=== PATIENT | female | born 1980 | race African-American/Black ===

== ENCOUNTER 2016-05-12 06:06 | Inpatient (IN) | payer BC ==
--- NOTE | ~2016-05-12 | DS ---
Discharge Summary [facility] [address] [place]. [address] NAME: GAVIOTA ÁLVAREZ : 78 STATUS : DIS [facility] PAT#: [id number] AGE: 36 ADM/REG DATE : 05/12/16 MR#: [id number] REPORT SERV DATE: 05/24/16 DICTATED BY: REJI FORD DATE: 05/23/16 REPORT STATUS : Draft TRANSCRIBED BY: PORFIRIO DATE: 05/23/16 Data Collection from hospitalization DISCHARGE DIAGNOSES: 1. Inappropriate sinus tachycardia status post sinus node ablation. 2. Dysfunctional atrial and right ventricular permanent pacemaker leads status post Cook catheter extraction of right atrial and right ventricular permanent pacemaker leads in the left subclavian vein under fluoroscopy. 3. Hypertension. 4. Atrial fibrillation. 5. History of transient ischemic attack. 6. Asthma. 7. Gastroesophageal reflux disease. 8. History of Janet. 9. History of Too disease. 10.Gastroparesis. 11.Pulmonary hypertension. CONSULTATION: Dr. Yonas Street. PROCEDURES: 1. Sinus node ablation, 05/12/2016. 2. Cook catheter extraction of right atrial and right ventricular permanent pacemaker leads and the left subclavian vein under fluoroscopy, 05/14/2016. PATHOLOGY: Left unused atrial lead-see gross description. Left ventricular unused lead-see gross description. DISCHARGE MEDICATIONS: ProAir one puff via inhaler every four hours as needed; Kieran Aspirin 325 mg every morning; Bumex 2 mg with breakfast and lunch; vitamin B12 1000 mcg sublingually every morning; cyproheptadine 4 mg twice a day; Valium 5 mg three times a day as needed; Marinol 2.5 mg every six hours; Lovenox 60 mg twice a day; Breo Ellipta one puff via inhaler at bedtime; Neurontin 800 mg three times a day; Cortef 10 mg daily at 7 p.m. and 15 mg every morning as instructed, 10 mg daily at 2 p.m.; Atarax 25 mg at bedtime and every four to six hours as needed; Antivert 25 mg every four hours as needed; Mobic 15 mg as needed; Reglan 5 mg before meals and at bedtime; Zofran 4-8 mg every four to six hours as needed; Percocet 5/325 one tablet every four hours as needed and one to two tablets every eight hours as instructed; Klor-Con 20 mEq daily; DHEA 1000 mg at bedtime; Compazine 10 mg four times a day; Phenergan 12.5-25 mg every four hours as needed; vitamin B2 400 mg daily; Zocor 20 mg at bedtime; Carafate 1 g twice a day; Topamax 25 mg at bedtime; scopolamine 0.1 mg topically every 72 hours; Effexor XR 75 mg twice a day; Verelan 180 mg at bedtime. CONDITION ON DISCHARGE: Stable. DISPOSITION: The patient was discharged home on a low-sodium, low-cholesterol cardiac diet with activities as instructed. She would follow up with me on 06/20/2016. She would follow up with Dr. Yonas Street on 06/09/2016. She would follow up with her primary care provider as needed. Discharge Summary [address] [address] NAME: GAVIOTA ÁLVAREZ : 78 STATUS : DIS [facility] PAT#: [id number] AGE: 36 ADM/REG DATE : 05/12/16 MR#: [id number] REPORT SERV DATE: 05/24/16 DICTATED BY: REJI FORD DATE: 05/23/16 REPORT STATUS : Draft TRANSCRIBED BY: PORFIRIO DATE: 05/23/16 HOSPITAL COURSE: This is a 36-year-old female, who has inappropriate sinus tachycardia. She had tried multiple medications in the past. She had undergone three sinus node modifications. She had undergone AV node ablation. Her two options were to change her device to VVI or to try sinus node ablation, not modification. She preferred to undergo ablation. She was admitted to the hospital at this time for further evaluation and treatment. Upon admission, she was taken to the Electrophysiology Laboratory, where she underwent the above-mentioned procedure. She tolerated this well. There were no complications. Following this, she was seen by Dr. Yonas Street. She was in need of two permanent pacemaker leads to be removed with Cook catheter extraction. She had functioning biventricular defibrillator and pacing device in the right subclavian system. She had two old pacing leads in the left subclavian system and two old pacing leads were not compatible with MRI scanning. The sheaths had to be removed, so that the MRI scan could be performed. The patient has dysfunctional right atrial and right ventricular leads in the left subclavian vein in need of extraction. The plan was to proceed with Cook catheter extraction of these two leads. She agreed to proceed. The following day, she did complain of some left leg numbness and tingling. She did have some bilateral lower extremity pain. On 05/14/2016, she remained stable. She was taken to the operating room by Dr. Yonas Street, where she underwent the above-mentioned procedure. She tolerated this well and there were no complications. Following this, the ICD detection was turned back on. Measurements were all within normal limits. On postop day #1, she complained of uncontrolled pain. Her wound looked okay. Pain medication was adjusted. Electrolyte replacement protocol was in place. Discharge planning was performed. Her rhythm was stable. On 06/13/2016, she continued to do well. She did have some pain, which was appropriate. She was alert and cooperative. Discharge instructions were given. Due to her improved and stable condition, she was discharged home with the above-stated instructions. Information collected by: Elena Paul I submit the above information as my discharge summary. TG/MODL Reji Ford M.D. / [id number] CC: Rosalee Jordan M.D. Stephen Martin, M.D.
--- NOTE | ~2016-05-12 | OP ---
Record Of Operation [facility] [address] [place]. [address] NAME: GAVIOTA ÁLVAREZ : 78 STATUS : ADM [facility] PAT#: [id number] AGE: 36 ADM/REG DATE : 05/12/16 MR#: [id number] REPORT SERV DATE: 05/14/16 DICTATED BY: YONAS STREET DATE: 05/14/16 REPORT STATUS : Draft TRANSCRIBED BY: MODL DATE: 05/14/16 DATE OF PROCEDURE: 05/14/2016 PREOPERATIVE DIAGNOSIS: Dysfunctional atrial and right ventricular permanent pacemaker leads, left subclavian vein, in need of removal for ability to perform MRI. POSTOPERATIVE DIAGNOSIS: Dysfunctional atrial and right ventricular permanent pacemaker leads, left subclavian vein, in need of removal for ability to perform MRI. OPERATIVE PROCEDURE: Cook catheter extraction of right atrial and right ventricular permanent pacemaker leads in the left subclavian vein under fluoroscopy. OPERATIVE SURGEON: Yonas Street M.D. ANESTHESIA: General endotracheal anesthesia, AA. OPERATIVE PROCEDURE: The patient was taken to the operating room and placed in the supine position. Anesthesia was obtained. The patient was prepped and draped in the usual fashion. Fluoroscopy was then used to visualize the left-sided right atrium and right ventricular permanent pacemaker leads. The pacemaker scar was then excised completely. The pocket was entered and the pacemaker leads were encountered. These were dissected to their sites going underneath the left clavicle and dissected free of all the scar. Two Stylets were placed, one in each lead. The leads were unable to be rotated. They were fixed with scar tissues. Stylets were removed. The ends of the leads were excised and two interlocking stylets were placed one in the each lead. Cook catheter extraction under fluoroscopy was then performed in usual fashion removing both leads in their entirety. The three functional leads from the right side remained in place and functioning normally. The leads were sent to pathology. Wounds were irrigated with 3L of saline. were then closed using three- layer fashion with suture and 3-0 Stratafix subcuticular sutures. . The patient tolerated the procedure well and was taken back to recovery in stable condition. SM/MODL Yonas Street M.D. / [id number] CC: Rosalee Jordan M.D.
--- NOTE | ~2016-05-12 | CN ---
Consultation Report [facility] [address] [place]. [address] NAME: GAVIOTA ÁLVAREZ : 78 STATUS : ADM [facility] PAT#: [id number] AGE: 36 ADM/REG DATE : 05/12/16 MR#: [id number] REPORT SERV DATE: 05/14/16 DICTATED BY: YONAS STREET DATE: 05/14/16 REPORT STATUS : Draft TRANSCRIBED BY: MODL DATE: 05/14/16 DATE OF CONSULTATION: 05/13/2016 PERTINENT HISTORY: The patient is a 36-year-old female referred by Dr. Ford in need of two permanent pacemaker leads to be removed with Cook catheter extraction. The patient had functioning biventricular defibrillator and pacing device in the right subclavian system. She had two old pacing leads in the left subclavian system, the two old pacing leads were not compatible with MRI scanning. Sheath had to be removed, so that the MRI scan could be performed. PAST MEDICAL HISTORY: Significant for previous open cardiothoracic surgery. She had previous permanent pacemaker placement, left infraclavicular position in 2011. She did have new system, biventricular AICD system placed in the right subclavian vein, in January of last year. The patient also has complained of a widened scar in the left infraclavicular position. SOCIAL HISTORY: Negative for tobacco, ethanol use. FAMILY HISTORY: Positive for nonischemic cardiomyopathy. PHYSICAL EXAMINATION: VITAL SIGNS: Shows the patient to be afebrile, blood pressure 100/60, heart rate was paced at 70. GENERAL: She is in no acute distress. Alert and oriented x3. NEUROLOGIC: Intact. No bruits noted in her neck. No adenopathy in the neck. CHEST: Had breath sounds bilaterally. She had a hypertrophic scar in left infraclavicular region from previous pacemaker placement. She had AICD permanent pacemaker in the right infraclavicular position. ABDOMEN: Soft and nontender. Obese. EXTREMITIES: Warm and dry. Chest x-ray demonstrated on the right side, permanent pacemaker AICD system with a high- voltage lead in right ventricle, right atrial lead, and a coronary sinus lead. On the left side were two capped leads, right atrial and right ventricular. IMPRESSION: At this time is dysfunctional right atrial and right ventricular leads in the left subclavian vein in need of extraction. PLAN: Plan is to proceed with Cook catheter extraction of these 2 leads. POOJA/PORFIRIO Yonas Consultation Report [facility] [address] [place]. [address] NAME: GAVIOTA ÁLVAREZ : 78 STATUS : ADM [facility] PAT#: [id number] AGE: 36 ADM/REG DATE : 05/12/16 MR#: [id number] REPORT SERV DATE: 05/14/16 DICTATED BY: YONAS STREET DATE: 05/14/16 REPORT STATUS : Draft TRANSCRIBED BY: PORFIRIO DATE: 05/14/[address] / [id number] CC: Rosalee Jordan M.D.
[~2016-05-12 06:06] MED LIST: 5-HTP50 MG PO; ACIDOPHILU2 PO; ASA5GR PO; ASABAYER PO; AT25 PO; BEN25 PO; BIST PO; BREO ELLIPTA 21 EACH INH; BUM2 PO; COMP10B PO; CONSTULOSE PO; CORTEF20 MG PO; CORTEF5 PO; CYANO1000T PO; CYPROHEPTAD4 MG PO; D 5000 PO; DHE1 PO; DRAMAMINE25 MG PO; EFFEX75 PO; EFFEXXR75 PO; ENDOCET1 TA1 PO; ENDOCET1 TAB PO; EX-LAX PO; FIORICET 50-301 EACH PO; FLAG500TAB PO; FLEET ENEMA PR; FLEXERIL5 MG PO; FLONASE NAS; FLUCON1 PO; GOLYTEL1 PO; HYDROCHLOROT25 MG PO; IBUPROFEN TOP; IMITREX25 PO; IND25 PO; ISOPTINSR PO; KLOR-CON M2020 MEQ PO; L20 PO; LEVAQUIN750 MG PO; LEVSINTAB PO; LINZESS 145 M145 MCG PO; LINZESS 290 M290 MCG PO; LOVENOX60 SC; LOVENOX80 SC; MAGNESIUM CITRATE PO; MARI2.5 PO; MARI5 PO; MCZ25 PO; MINERAL OIL PO; MIRALAXPKT PO; MOBIC7.5 PO; MOMUD PO; NEUR600 PO; NEUR800 PO; NIACIN100 PO; NUCALA IM; PAPAYA ENZY1 PO; PCET PO; PERCOCET1 TA4 PO; PHILLIPS MOM311 M1 PO; PLAQ200B PO; PR25 PO; PROAIRRESP INH; PROVHFA INH; QVAR80 MCG PO; REG5 PO; SANI-SUPP1.5 GM PR; SUCR PO; SUPER B COMP PO; SYMAX-SL0.125 MG PO; SYSTANE OPH; TOPAMAX25 PO; TRANSSCOP TOP; V180SR PO; VERELAN180 MG PO; VITAMIN B-121000 MC1 SL; VITAMIN B-2100 MG PO; VITD PO; XARELTO20 MG PO; XIFAXAN550 MG PO; ZOCOR20 PO; ZOFRAN4 PO; [UNRECOGNIZED DRUG - OTHER] PO; [UNRECOGNIZED DRUG - OTHER] TOP
[2016-05-12 06:57] LABS: BASOPHILS 0.1 %; BASOPHILS ABSOLUTE 0.01 10/3/uL (0.0-0.16); EOSINOPHILS 1.5 %; EOSINOPHILS ABSOLUTE 0.11 10/3/uL (0.0-0.53); HEMATOCRIT 37.2 % (36.0-48.0); HEMOGLOBIN 12.5 g/dL (12.0-16.0); IMMATURE GRANULOCYTES 0.3 %; IMMATURE GRANULOCYTES ABSOLUTE 0.02 10/3/uL (0.0-0.11); LYMPHOCYTES 39.2 %; LYMPHOCYTES ABSOLUTE 2.89 10/3/uL (0.67-4.30); MEAN CORPUS HGB CONC 33.6 g/dL (32.0-36.0); MEAN CORPUSCULAR HEMOGLOB 29.9 pg (26.0-34.0); MEAN PLATELET VOLUME 10.4 fL (9.2-13.0); MONOCYTES 8.3 %; MONOCYTES ABSOLUTE 0.61 10/3/uL (0.21-1.20); NEUTROPHILS 50.6 %; NEUTROPHILS ABSOLUTE 3.73 10/3/uL (2.02-8.40); PLATELET COUNT 301 10/3/uL (150-400); RBC DISTRIBUTION WIDTH 15.2 % (12.0-16.0); RED CELL COUNT 4.18 10/6/uL (4.0-5.6); WHITE BLOOD CELLS 7.4 10/3/uL (4.5-10.5)
[2016-05-12 06:58] LABS: MANUAL DIFF NO %
[2016-05-12 07:12] LABS: BUN (BLOOD UREA NITROGEN) 9 MG/DL (6-23); CALCIUM, SERUM 9.1 MG/DL (8.5-10.4); CHLORIDE, SERUM 104 MMOL/L (96-112); CO2 (CARBON DIOXIDE) 22 MMOL/L (24-34); CREATININE 1.04 MG/DL (0.55-1.02); GFR AFRICAN AMERICAN 79 ML/MIN (>=60); GFR NON AFRICAN AMERICAN 69 ML/MIN (>=60); GLUCOSE, SERUM 109 MG/DL (60-99); POTASSIUM, SERUM 3.9 MMOL/L (3.5-5.3); SODIUM, SERUM 141 MMOL/L (135-148)
[2016-05-12] MEDS ORDERED: PCET PO (07:18)
[2016-05-12] MEDS ORDERED: PR12.5 PO (07:19)
[2016-05-12] MEDS ORDERED: COMP10B PO (07:20)
[2016-05-12] MEDS ORDERED: ZOFRAN4 PO (07:21)
[2016-05-12] MEDS ORDERED: CORTEF5 PO ×2 (07:23→07:40)
[2016-05-12] MEDS ORDERED: CORTEF20 MG PO (07:41)
[2016-05-12] MEDS ORDERED: NEUR800 PO (07:42)
[2016-05-12] MEDS ORDERED: TOPAMAX25 PO (07:42)
[2016-05-12] MEDS ORDERED: AT25 PO ×2 (07:43)
[2016-05-12] MEDS ORDERED: MOBIC15 MG PO (07:44)
[2016-05-12] MEDS ORDERED: PROAIRRESP INH (07:45)
[2016-05-12] MEDS ORDERED: BREO ELLIPTA 21 EACH INH (07:45)
[2016-05-12] MEDS ORDERED: MCZ25 PO (07:46)
[2016-05-12] MEDS ORDERED: SCOPOLAMINE T (07:51)
[2016-05-12] MEDS ORDERED: VITAMIN B-2100 MG PO (07:52)
[2016-05-12] MEDS ORDERED: ZOCOR20 PO (07:54)
[2016-05-12] MEDS ORDERED: DHE1 PO (07:54)
[2016-05-14 07:46] LABS: BASOPHILS 0.1 %; BASOPHILS ABSOLUTE 0.01 10/3/uL (0.0-0.16); EOSINOPHILS 1.3 %; EOSINOPHILS ABSOLUTE 0.09 10/3/uL (0.0-0.53); HEMATOCRIT 35.4 % (36.0-48.0); HEMOGLOBIN 11.7 g/dL (12.0-16.0); IMMATURE GRANULOCYTES 0.3 %; IMMATURE GRANULOCYTES ABSOLUTE 0.02 10/3/uL (0.0-0.11); LYMPHOCYTES 31.2 %; LYMPHOCYTES ABSOLUTE 2.12 10/3/uL (0.67-4.30); MEAN CORPUS HGB CONC 33.1 g/dL (32.0-36.0); MEAN CORPUSCULAR HEMOGLOB 30.9 pg (26.0-34.0); MEAN PLATELET VOLUME 10.2 fL (9.2-13.0); MONOCYTES 11.5 %; MONOCYTES ABSOLUTE 0.78 10/3/uL (0.21-1.20); NEUTROPHILS 55.6 %; NEUTROPHILS ABSOLUTE 3.77 10/3/uL (2.02-8.40); PLATELET COUNT 238 10/3/uL (150-400); RBC DISTRIBUTION WIDTH 14.7 % (12.0-16.0); RED CELL COUNT 3.79 10/6/uL (4.0-5.6); WHITE BLOOD CELLS 6.8 10/3/uL (4.5-10.5)
[2016-05-14 07:47] LABS: MANUAL DIFF NO %; MEAN CORPUSCULAR VOLUME 93.4 fL (80-100)
[2016-05-14 07:49] LABS: PARTIAL THROMBO TIME 29.7 SEC (22.5-37.2); PROTIME (NOT ORD) 13.3 SEC (12.0-14.5)
[2016-05-14 07:57] LABS: ALBUMIN 3.2 G/DL (3.5-5.0); ALKALINE PHOSPHATASE 123 U/L (45-117); BUN (BLOOD UREA NITROGEN) 8 MG/DL (6-23); CHLORIDE, SERUM 100 MMOL/L (96-112); CREATININE 0.93 MG/DL (0.55-1.02); GFR AFRICAN AMERICAN 91 ML/MIN (>=60); GFR NON AFRICAN AMERICAN 79 ML/MIN (>=60); GLUCOSE, SERUM 89 MG/DL (60-99); POTASSIUM, SERUM 3.2 MMOL/L (3.5-5.3); SGOT(AST) 27 U/L (5-40); SGPT(ALT) 34 U/L (5-65); SODIUM, SERUM 140 MMOL/L (135-148); TOTAL BILIRUBIN 0.6 MG/DL (0-1.2); TOTAL PROTEIN 7.1 G/DL (6.0-8.5)
[2016-05-14 07:58] LABS: CALCIUM, SERUM 7.8 MG/DL (8.5-10.4); CO2 (CARBON DIOXIDE) 27 MMOL/L (24-34); DIRECT BILIRUBIN < 0.1 MG/DL (0.0-0.4); INDIRECT BILIRUBIN(NOT ORDER) 0.5 MG/DL (0.1-0.9)
[2016-05-15 13:24] LABS: CALCIUM, SERUM 8.1 MG/DL (8.5-10.4); CHLORIDE, SERUM 98 MMOL/L (96-112); CO2 (CARBON DIOXIDE) 27 MMOL/L (24-34); GFR AFRICAN AMERICAN 83 ML/MIN (>=60); GFR NON AFRICAN AMERICAN 72 ML/MIN (>=60); SODIUM, SERUM 139 MMOL/L (135-148)
[2016-05-15 13:27] LABS: BUN (BLOOD UREA NITROGEN) 4 MG/DL (6-23); GLUCOSE, SERUM 108 MG/DL (60-99); POTASSIUM, SERUM 2.8 MMOL/L (3.5-5.3)
[2016-05-16 07:26] LABS: BASOPHILS 0.1 %; BASOPHILS ABSOLUTE 0.01 10/3/uL (0.0-0.16); EOSINOPHILS 1.7 %; EOSINOPHILS ABSOLUTE 0.16 10/3/uL (0.0-0.53); HEMATOCRIT 32.2 % (36.0-48.0); HEMOGLOBIN 10.4 g/dL (12.0-16.0); IMMATURE GRANULOCYTES 0.6 %; IMMATURE GRANULOCYTES ABSOLUTE 0.06 10/3/uL (0.0-0.11); LYMPHOCYTES 23.7 %; LYMPHOCYTES ABSOLUTE 2.22 10/3/uL (0.67-4.30); MEAN CORPUS HGB CONC 32.3 g/dL (32.0-36.0); MEAN CORPUSCULAR HEMOGLOB 30.8 pg (26.0-34.0); MEAN CORPUSCULAR VOLUME 95.3 fL (80-100); MEAN PLATELET VOLUME 10.1 fL (9.2-13.0); MONOCYTES 7.6 %; MONOCYTES ABSOLUTE 0.71 10/3/uL (0.21-1.20); NEUTROPHILS 66.3 %; NEUTROPHILS ABSOLUTE 6.21 10/3/uL (2.02-8.40); PLATELET COUNT 235 10/3/uL (150-400); RED CELL COUNT 3.38 10/6/uL (4.0-5.6); WHITE BLOOD CELLS 9.4 10/3/uL (4.5-10.5)
[2016-05-16 07:27] LABS: MANUAL DIFF NO %
[2016-05-16 07:38] LABS: BUN (BLOOD UREA NITROGEN) 10 MG/DL (6-23); CALCIUM, SERUM 8.6 MG/DL (8.5-10.4); CHLORIDE, SERUM 104 MMOL/L (96-112); CO2 (CARBON DIOXIDE) 23 MMOL/L (24-34); CREATININE 1.07 MG/DL (0.55-1.02); GFR AFRICAN AMERICAN 77 ML/MIN (>=60); GFR NON AFRICAN AMERICAN 66 ML/MIN (>=60); GLUCOSE, SERUM 154 MG/DL (60-99); SODIUM, SERUM 141 MMOL/L (135-148)
[2016-05-16] MEDS ORDERED: PCET PO (16:21)
[2016-05-16] MEDS ORDERED: V5 PO (16:22)
[2016-10-15] MEDS ORDERED: LOVENOX60 SC (16:20)
[2016-10-15] MEDS ORDERED: TOPAMAX25 PO (16:21)
[2016-10-15] MEDS ORDERED: BUM2 PO (16:21)
[2016-10-15] MEDS ORDERED: REG5 PO (16:21)
[2016-10-15] MEDS ORDERED: TRANSSCOP TOP (16:21)
[2016-10-15] MEDS ORDERED: CATPATCH1 TOP (16:22)
[2016-10-15] MEDS ORDERED: ZOCOR20 PO (16:22)
[2016-10-15] MEDS ORDERED: SACU1TAB PO (16:22)
[2016-10-15] MEDS ORDERED: ISOPTIN SR180 MG PO (16:23)
[2016-10-15] MEDS ORDERED: BREO ELLIPTA 21 EACH INH (16:23)
[2016-10-15] MEDS ORDERED: COREG3 PO (16:24)
[2016-10-15] MEDS ORDERED: CORTEF5 PO ×2 (16:24→16:25)
[2016-10-15] MEDS ORDERED: NEUR800 PO (16:24)
[2016-10-15] MEDS ORDERED: AT25 PO ×2 (16:25→16:30)
[2016-10-15] MEDS ORDERED: DHE1 PO (16:25)
[2016-10-15] MEDS ORDERED: SUCR PO (16:26)
[2016-10-15] MEDS ORDERED: EFFEXXR75 PO (16:26)
[2016-10-15] MEDS ORDERED: CYPROHEPTAD4 MG PO (16:26)
[2016-10-15] MEDS ORDERED: KLOR-CON M2020 MEQ PO (16:27)
[2016-10-15] MEDS ORDERED: VITAMIN B-2100 MG PO (16:28)
[2016-10-15] MEDS ORDERED: NUCALA SQ (16:29)
[2016-10-15] MEDS ORDERED: MARI2.5 PO (16:30)
[2016-10-15] MEDS ORDERED: PR25 PO (16:30)
[2016-10-15] MEDS ORDERED: COMP10B PO (16:31)
[2016-10-15] MEDS ORDERED: MOBIC7.5 PO (16:31)
[2016-10-15] MEDS ORDERED: PCET PO (16:32)
[2016-10-15] MEDS ORDERED: IMITREX25 PO (16:36)
[2016-10-15] MEDS ORDERED: MCZ25 PO (16:38)
[2016-10-15] MEDS ORDERED: PROAIRRESP INH (16:38)
[2016-10-15] MEDS ORDERED: BEN25 PO (16:39)
[2016-10-15] MEDS ORDERED: SYSTANE OPH (16:39)
[2016-10-15] MEDS ORDERED: ANASPAZ0.125 MG PO (16:39)
[2016-10-15] MEDS ORDERED: V5 PO (16:40)
[2016-11-12] MEDS ORDERED: PR12.5 PO (14:18)
[2016-11-12] MEDS ORDERED: EFFEXOR XR150 MG PO (14:21)
[2016-11-12] MEDS ORDERED: PAPAYA ENZY1 PO (14:26)
[2016-11-12] MEDS ORDERED: NEXIUM40 PO (14:27)
[2016-11-19] MEDS ORDERED: ZOFRANODT8 PO (10:55)
[2016-11-19] MEDS ORDERED: MARI2.5 PO (10:56)
[2016-11-19] MEDS ORDERED: PCET PO (10:56)
[2016-11-19] MEDS ORDERED: TOPAMAX50 MG PO (10:57)
[2016-12-07] MEDS ORDERED: NEXIUM40 PO (15:15)
[2016-12-07] MEDS ORDERED: BREO ELLIPTA 21 EACH INH (15:15)
[2016-12-07] MEDS ORDERED: AT25 PO ×2 (15:16→15:17)
[2016-12-07] MEDS ORDERED: COREG3 PO (15:16)
[2016-12-07] MEDS ORDERED: ZOCOR20 PO (15:16)
[2016-12-07] MEDS ORDERED: IMITREX50 PO (15:17)
[2016-12-07] MEDS ORDERED: MARI2.5 PO (15:18)
[2016-12-07] MEDS ORDERED: ZOFRAN8 PO (15:18)
[2016-12-07] MEDS ORDERED: TOPAMAX50 MG PO (15:19)
[2016-12-07] MEDS ORDERED: LOVENOX60 SC (15:19)
[2016-12-07] MEDS ORDERED: PCET PO (15:19)
[2016-12-07] MEDS ORDERED: BUM2 PO (15:19)
[2016-12-07] MEDS ORDERED: CYPROHEPTAD4 MG PO (15:20)
[2016-12-07] MEDS ORDERED: CATPATCH1 TOP (15:20)
[2016-12-07] MEDS ORDERED: SACU1TAB PO (15:20)
[2016-12-07] MEDS ORDERED: NEUR800 PO (15:21)
[2016-12-07] MEDS ORDERED: CORTEF5 PO ×3 (15:22)
[2016-12-07] MEDS ORDERED: REG PO (15:23)
[2016-12-07] MEDS ORDERED: TRANSSCOP TOP (15:24)
[2016-12-07] MEDS ORDERED: SUCR PO (15:25)
[2016-12-07] MEDS ORDERED: EFFEXXR75 PO ×2 (15:26)
[2016-12-07] MEDS ORDERED: COMP10B PO (15:27)
[2016-12-07] MEDS ORDERED: PR25 PO (15:28)
[2016-12-07] MEDS ORDERED: PROMETHAZINE DM SYRP PO (15:30)
[2016-12-07] MEDS ORDERED: V5 PO (15:31)
[2016-12-07] MEDS ORDERED: MOBIC7.5 PO (15:32)
[2016-12-07] MEDS ORDERED: ISOPTIN SR180 MG PO (15:35)
[2016-12-07] MEDS ORDERED: ASABAYER PO (15:36)
[2016-12-07] MEDS ORDERED: VITD PO (15:37)
[2016-12-07] MEDS ORDERED: B121000P SC (15:37)
[2016-12-07] MEDS ORDERED: EPIPEN0.3 IM (15:37)
[2016-12-12] MEDS ORDERED: FLORINEF0.1 MG PO (11:28)
[2016-12-12] MEDS ORDERED: KLOR-CON M2020 MEQ PO (11:37)
[2016-12-12] MEDS ORDERED: CORTEF20 MG PO (11:38)
[2016-12-12] MEDS ORDERED: PR12.5 PO (11:39)
[2016-12-12] MEDS ORDERED: ZOFRAN8 PO (11:39)
[2016-12-12] MEDS ORDERED: CORTEF5 PO (11:39)
[2016-12-17] MEDS ORDERED: XIFAXAN550 MG PO (18:26)
[2016-12-22] MEDS ORDERED: BUM5 PO (10:40)
[2016-12-22] MEDS ORDERED: KLOR-CON 1010 MEQ PO (10:54)
== END 2016-05-16 18:03 | disposition home or self-care (01) | DRG 274 ==
LOC: CORLMH 06:06 → SSU1 06:15 → 7NO 15:57
PROVIDERS: Internal Medicine Cardiovascular Disease; Thoracic Surgery (Cardiothoracic Vascular Surgery)
PROC: 4A023FZ Measurement of Cardiac Rhythm, Percutaneous Approach (ICD-10-PCS; principal; 2016-05-12)
PROC: 02583ZZ Destruction of Conduction Mechanism, Percutaneous Approach (ICD-10-PCS; 2016-05-12)
PROC: 4A0234Z Measurement of Cardiac Electrical Activity, Percutaneous Approach (ICD-10-PCS; 2016-05-12)
PROC: 02K83ZZ Map Conduction Mechanism, Percutaneous Approach (ICD-10-PCS; 2016-05-12)
PROC: 0HB5XZZ Excision of Chest Skin, External Approach (ICD-10-PCS; 2016-05-14)
PROC: 02PA3MZ Removal of Cardiac Lead from Heart, Percutaneous Approach (ICD-10-PCS; 2016-05-14)
DX: T82.190A Other mechanical complication of cardiac electrode, initial encounter (principal); I44.2 Atrioventricular block, complete; I27.2 Other secondary pulmonary hypertension; K31.84 Gastroparesis; I47.1 Supraventricular tachycardia; L90.5 Scar conditions and fibrosis of skin; J45.909 Unspecified asthma, uncomplicated; K21.9 Gastro-esophageal reflux disease without esophagitis; G89.18 Other acute postprocedural pain; Z86.73 Personal history of transient ischemic attack (TIA), and cerebral infarction without residual deficits
CPT/HCPCS: 36415; 71010; 71020; 80048; 80076; 82962; 83735; 85025; 85610; 85730; 86850; 86900; 86901; 86920; 88300; 93005; 93613; 93621; 93653; A9270-GY; C1730; C1732; C1769; C1773; C1781; C1893; C1894; J0330; J1170; J1720; J1885; J2250; J2370; J2405; J2710; J2765; J3010; J3370

== ENCOUNTER 2016-05-21 17:55 | Emergency (ER) | payer BC ==
[~2016-05-21 17:55] MED LIST changes: +MOBIC15 MG PO; +PR12.5 PO; +SCOPOLAMINE T; +V5 PO
[2016-05-21 18:56] LABS: BASOPHILS 0.2 %; BASOPHILS ABSOLUTE 0.02 10/3/uL (0.0-0.16); EOSINOPHILS 3.6 %; EOSINOPHILS ABSOLUTE 0.34 10/3/uL (0.0-0.53); HEMOGLOBIN 11.7 g/dL (12.0-16.0); IMMATURE GRANULOCYTES 0.4 %; IMMATURE GRANULOCYTES ABSOLUTE 0.04 10/3/uL (0.0-0.11); LYMPHOCYTES 27.1 %; LYMPHOCYTES ABSOLUTE 2.58 10/3/uL (0.67-4.30); MEAN CORPUS HGB CONC 32.8 g/dL (32.0-36.0); MEAN CORPUSCULAR HEMOGLOB 30.3 pg (26.0-34.0); MEAN CORPUSCULAR VOLUME 92.5 fL (80-100); MEAN PLATELET VOLUME 10.1 fL (9.2-13.0); MONOCYTES 8.6 %; MONOCYTES ABSOLUTE 0.82 10/3/uL (0.21-1.20); NEUTROPHILS 60.1 %; NEUTROPHILS ABSOLUTE 5.72 10/3/uL (2.02-8.40); RBC DISTRIBUTION WIDTH 15.2 % (12.0-16.0); RED CELL COUNT 3.86 10/6/uL (4.0-5.6); WHITE BLOOD CELLS 9.5 10/3/uL (4.5-10.5)
[2016-05-21 18:58] LABS: HEMATOCRIT 35.7 % (36.0-48.0); MANUAL DIFF NO %; PLATELET COUNT 351 10/3/uL (150-400)
[2016-05-21 19:04] LABS: INFLUENZA A SCREEN NEGATIVE (NEGATIVE); INFLUENZA B SCREEN NEGATIVE (NEGATIVE)
[2016-05-21 19:12] LABS: ALBUMIN 3.5 G/DL (3.5-5.0); BUN (BLOOD UREA NITROGEN) 8 MG/DL (6-23); CALCIUM, SERUM 9.2 MG/DL (8.5-10.4); CHLORIDE, SERUM 104 MMOL/L (96-112); CO2 (CARBON DIOXIDE) 23 MMOL/L (24-34); GFR AFRICAN AMERICAN 95 ML/MIN (>=60); GFR NON AFRICAN AMERICAN 82 ML/MIN (>=60); SGPT(ALT) 56 U/L (5-65); SODIUM, SERUM 138 MMOL/L (135-148)
[2016-05-21 19:13] LABS: A/G RATIO 0.8 (0.7-1.9); ALKALINE PHOSPHATASE 189 U/L (45-117); GLOBULIN 4.5 G/DL (2.5-4.1); GLUCOSE, SERUM 115 MG/DL (60-99); POTASSIUM, SERUM 4.7 MMOL/L (3.5-5.3); SGOT(AST) 43 U/L (5-40)
[2016-10-15] MEDS ORDERED: LOVENOX60 SC (16:20)
[2016-10-15] MEDS ORDERED: TRANSSCOP TOP (16:21)
[2016-10-15] MEDS ORDERED: TOPAMAX25 PO (16:21)
[2016-10-15] MEDS ORDERED: BUM2 PO (16:21)
[2016-10-15] MEDS ORDERED: REG5 PO (16:21)
[2016-10-15] MEDS ORDERED: ZOCOR20 PO (16:22)
[2016-10-15] MEDS ORDERED: SACU1TAB PO (16:22)
[2016-10-15] MEDS ORDERED: CATPATCH1 TOP (16:22)
[2016-10-15] MEDS ORDERED: BREO ELLIPTA 21 EACH INH (16:23)
[2016-10-15] MEDS ORDERED: ISOPTIN SR180 MG PO (16:23)
[2016-10-15] MEDS ORDERED: CORTEF5 PO ×2 (16:24→16:25)
[2016-10-15] MEDS ORDERED: COREG3 PO (16:24)
[2016-10-15] MEDS ORDERED: NEUR800 PO (16:24)
[2016-10-15] MEDS ORDERED: AT25 PO ×2 (16:25→16:30)
[2016-10-15] MEDS ORDERED: DHE1 PO (16:25)
[2016-10-15] MEDS ORDERED: CYPROHEPTAD4 MG PO (16:26)
[2016-10-15] MEDS ORDERED: SUCR PO (16:26)
[2016-10-15] MEDS ORDERED: EFFEXXR75 PO (16:26)
[2016-10-15] MEDS ORDERED: KLOR-CON M2020 MEQ PO (16:27)
[2016-10-15] MEDS ORDERED: VITAMIN B-2100 MG PO (16:28)
[2016-10-15] MEDS ORDERED: NUCALA SQ (16:29)
[2016-10-15] MEDS ORDERED: MARI2.5 PO (16:30)
[2016-10-15] MEDS ORDERED: PR25 PO (16:30)
[2016-10-15] MEDS ORDERED: COMP10B PO (16:31)
[2016-10-15] MEDS ORDERED: MOBIC7.5 PO (16:31)
[2016-10-15] MEDS ORDERED: PCET PO (16:32)
[2016-10-15] MEDS ORDERED: IMITREX25 PO (16:36)
[2016-10-15] MEDS ORDERED: PROAIRRESP INH (16:38)
[2016-10-15] MEDS ORDERED: MCZ25 PO (16:38)
[2016-10-15] MEDS ORDERED: BEN25 PO (16:39)
[2016-10-15] MEDS ORDERED: SYSTANE OPH (16:39)
[2016-10-15] MEDS ORDERED: ANASPAZ0.125 MG PO (16:39)
[2016-10-15] MEDS ORDERED: V5 PO (16:40)
[2016-11-12] MEDS ORDERED: PR12.5 PO (14:18)
[2016-11-12] MEDS ORDERED: EFFEXOR XR150 MG PO (14:21)
[2016-11-12] MEDS ORDERED: PAPAYA ENZY1 PO (14:26)
[2016-11-12] MEDS ORDERED: NEXIUM40 PO (14:27)
[2016-11-19] MEDS ORDERED: ZOFRANODT8 PO (10:55)
[2016-11-19] MEDS ORDERED: PCET PO (10:56)
[2016-11-19] MEDS ORDERED: MARI2.5 PO (10:56)
[2016-11-19] MEDS ORDERED: TOPAMAX50 MG PO (10:57)
[2016-12-07] MEDS ORDERED: NEXIUM40 PO (15:15)
[2016-12-07] MEDS ORDERED: BREO ELLIPTA 21 EACH INH (15:15)
[2016-12-07] MEDS ORDERED: COREG3 PO (15:16)
[2016-12-07] MEDS ORDERED: AT25 PO ×2 (15:16→15:17)
[2016-12-07] MEDS ORDERED: ZOCOR20 PO (15:16)
[2016-12-07] MEDS ORDERED: IMITREX50 PO (15:17)
[2016-12-07] MEDS ORDERED: ZOFRAN8 PO (15:18)
[2016-12-07] MEDS ORDERED: MARI2.5 PO (15:18)
[2016-12-07] MEDS ORDERED: TOPAMAX50 MG PO (15:19)
[2016-12-07] MEDS ORDERED: LOVENOX60 SC (15:19)
[2016-12-07] MEDS ORDERED: BUM2 PO (15:19)
[2016-12-07] MEDS ORDERED: PCET PO (15:19)
[2016-12-07] MEDS ORDERED: SACU1TAB PO (15:20)
[2016-12-07] MEDS ORDERED: CYPROHEPTAD4 MG PO (15:20)
[2016-12-07] MEDS ORDERED: CATPATCH1 TOP (15:20)
[2016-12-07] MEDS ORDERED: NEUR800 PO (15:21)
[2016-12-07] MEDS ORDERED: CORTEF5 PO ×3 (15:22)
[2016-12-07] MEDS ORDERED: REG PO (15:23)
[2016-12-07] MEDS ORDERED: TRANSSCOP TOP (15:24)
[2016-12-07] MEDS ORDERED: SUCR PO (15:25)
[2016-12-07] MEDS ORDERED: EFFEXXR75 PO ×2 (15:26)
[2016-12-07] MEDS ORDERED: COMP10B PO (15:27)
[2016-12-07] MEDS ORDERED: PR25 PO (15:28)
[2016-12-07] MEDS ORDERED: PROMETHAZINE DM SYRP PO (15:30)
[2016-12-07] MEDS ORDERED: V5 PO (15:31)
[2016-12-07] MEDS ORDERED: MOBIC7.5 PO (15:32)
[2016-12-07] MEDS ORDERED: ISOPTIN SR180 MG PO (15:35)
[2016-12-07] MEDS ORDERED: ASABAYER PO (15:36)
[2016-12-07] MEDS ORDERED: VITD PO (15:37)
[2016-12-07] MEDS ORDERED: B121000P SC (15:37)
[2016-12-07] MEDS ORDERED: EPIPEN0.3 IM (15:37)
[2016-12-12] MEDS ORDERED: FLORINEF0.1 MG PO (11:28)
[2016-12-12] MEDS ORDERED: KLOR-CON M2020 MEQ PO (11:37)
[2016-12-12] MEDS ORDERED: CORTEF20 MG PO (11:38)
[2016-12-12] MEDS ORDERED: CORTEF5 PO (11:39)
[2016-12-12] MEDS ORDERED: PR12.5 PO (11:39)
[2016-12-12] MEDS ORDERED: ZOFRAN8 PO (11:39)
[2016-12-17] MEDS ORDERED: XIFAXAN550 MG PO (18:26)
[2016-12-22] MEDS ORDERED: BUM5 PO (10:40)
[2016-12-22] MEDS ORDERED: KLOR-CON 1010 MEQ PO (10:54)
== END 2016-05-21 22:07 | disposition home or self-care (01) ==
LOC: ER 17:55
PROVIDERS: Emergency Medicine; Hospitalist
DX: T81.4XXA Infection following a procedure, initial encounter (principal); J45.909 Unspecified asthma, uncomplicated; I11.0 Hypertensive heart disease with heart failure; I50.9 Heart failure, unspecified; F41.9 Anxiety disorder, unspecified; F32.9 Major depressive disorder, single episode, unspecified; M32.9 Systemic lupus erythematosus, unspecified; Z91.041 Radiographic dye allergy status; Z88.0 Allergy status to penicillin; Z88.5 Allergy status to narcotic agent; Z88.8 Allergy status to other drugs, medicaments and biological substances; Z88.1 Allergy status to other antibiotic agents; Z91.040 Latex allergy status; Z91.018 Allergy to other foods; Z91.013 Allergy to seafood; Z91.048 Other nonmedicinal substance allergy status; Z79.82 Long term (current) use of aspirin
CPT/HCPCS: 36600; 80053; 84443; 85025; 87040; 87804; 93005; 96374; 99285; J1170; J2405

== ENCOUNTER 2016-06-02 14:31 | Emergency (ER) | payer BC ==
[2016-06-02 15:18] LABS: BASOPHILS 0.2 %; BASOPHILS ABSOLUTE 0.02 10/3/uL (0.0-0.16); EOSINOPHILS 3.4 %; EOSINOPHILS ABSOLUTE 0.28 10/3/uL (0.0-0.53); HEMATOCRIT 43.1 % (36.0-48.0); HEMOGLOBIN 14.8 g/dL (12.0-16.0); IMMATURE GRANULOCYTES 0.2 %; IMMATURE GRANULOCYTES ABSOLUTE 0.02 10/3/uL (0.0-0.11); LYMPHOCYTES 46.2 %; LYMPHOCYTES ABSOLUTE 3.85 10/3/uL (0.67-4.30); MANUAL DIFF NO %; MEAN CORPUS HGB CONC 34.3 g/dL (32.0-36.0); MEAN CORPUSCULAR HEMOGLOB 30.4 pg (26.0-34.0); MEAN CORPUSCULAR VOLUME 88.5 fL (80-100); MEAN PLATELET VOLUME 10.5 fL (9.2-13.0); MONOCYTES 10.4 %; MONOCYTES ABSOLUTE 0.87 10/3/uL (0.21-1.20); NEUTROPHILS 39.6 %; NEUTROPHILS ABSOLUTE 3.29 10/3/uL (2.02-8.40); PLATELET COUNT 447 10/3/uL (150-400); RBC DISTRIBUTION WIDTH 14.9 % (12.0-16.0); RED CELL COUNT 4.87 10/6/uL (4.0-5.6); WHITE BLOOD CELLS 8.3 10/3/uL (4.5-10.5)
[2016-06-02 18:19] LABS: BUN (BLOOD UREA NITROGEN) 11 MG/DL (6-23); CALCIUM, SERUM 8.6 MG/DL (8.5-10.4); CHLORIDE, SERUM 95 MMOL/L (96-112); CREATININE 1.03 MG/DL (0.55-1.02); GFR AFRICAN AMERICAN 80 ML/MIN (>=60); GFR NON AFRICAN AMERICAN 69 ML/MIN (>=60); GLOBULIN 4.1 G/DL (2.5-4.1); GLUCOSE, SERUM 113 MG/DL (60-99); SGOT(AST) 32 U/L (5-40); SGPT(ALT) 36 U/L (5-65); SODIUM, SERUM 137 MMOL/L (135-148); TOTAL BILIRUBIN 0.9 MG/DL (0-1.2); TOTAL PROTEIN 8.1 G/DL (6.0-8.5)
[2016-06-02 18:21] LABS: ALKALINE PHOSPHATASE 160 U/L (45-117); CO2 (CARBON DIOXIDE) 29 MMOL/L (24-34); POTASSIUM, SERUM 2.8 MMOL/L (3.5-5.3)
[2016-10-15] MEDS ORDERED: LOVENOX60 SC (16:20)
[2016-10-15] MEDS ORDERED: BUM2 PO (16:21)
[2016-10-15] MEDS ORDERED: TOPAMAX25 PO (16:21)
[2016-10-15] MEDS ORDERED: REG5 PO (16:21)
[2016-10-15] MEDS ORDERED: TRANSSCOP TOP (16:21)
[2016-10-15] MEDS ORDERED: CATPATCH1 TOP (16:22)
[2016-10-15] MEDS ORDERED: SACU1TAB PO (16:22)
[2016-10-15] MEDS ORDERED: ZOCOR20 PO (16:22)
[2016-10-15] MEDS ORDERED: BREO ELLIPTA 21 EACH INH (16:23)
[2016-10-15] MEDS ORDERED: ISOPTIN SR180 MG PO (16:23)
[2016-10-15] MEDS ORDERED: COREG3 PO (16:24)
[2016-10-15] MEDS ORDERED: CORTEF5 PO ×2 (16:24→16:25)
[2016-10-15] MEDS ORDERED: NEUR800 PO (16:24)
[2016-10-15] MEDS ORDERED: AT25 PO ×2 (16:25→16:30)
[2016-10-15] MEDS ORDERED: DHE1 PO (16:25)
[2016-10-15] MEDS ORDERED: EFFEXXR75 PO (16:26)
[2016-10-15] MEDS ORDERED: SUCR PO (16:26)
[2016-10-15] MEDS ORDERED: CYPROHEPTAD4 MG PO (16:26)
[2016-10-15] MEDS ORDERED: KLOR-CON M2020 MEQ PO (16:27)
[2016-10-15] MEDS ORDERED: VITAMIN B-2100 MG PO (16:28)
[2016-10-15] MEDS ORDERED: NUCALA SQ (16:29)
[2016-10-15] MEDS ORDERED: MARI2.5 PO (16:30)
[2016-10-15] MEDS ORDERED: PR25 PO (16:30)
[2016-10-15] MEDS ORDERED: MOBIC7.5 PO (16:31)
[2016-10-15] MEDS ORDERED: COMP10B PO (16:31)
[2016-10-15] MEDS ORDERED: PCET PO (16:32)
[2016-10-15] MEDS ORDERED: IMITREX25 PO (16:36)
[2016-10-15] MEDS ORDERED: PROAIRRESP INH (16:38)
[2016-10-15] MEDS ORDERED: MCZ25 PO (16:38)
[2016-10-15] MEDS ORDERED: SYSTANE OPH (16:39)
[2016-10-15] MEDS ORDERED: ANASPAZ0.125 MG PO (16:39)
[2016-10-15] MEDS ORDERED: BEN25 PO (16:39)
[2016-10-15] MEDS ORDERED: V5 PO (16:40)
[2016-11-12] MEDS ORDERED: PR12.5 PO (14:18)
[2016-11-12] MEDS ORDERED: EFFEXOR XR150 MG PO (14:21)
[2016-11-12] MEDS ORDERED: PAPAYA ENZY1 PO (14:26)
[2016-11-12] MEDS ORDERED: NEXIUM40 PO (14:27)
[2016-11-19] MEDS ORDERED: ZOFRANODT8 PO (10:55)
[2016-11-19] MEDS ORDERED: PCET PO (10:56)
[2016-11-19] MEDS ORDERED: MARI2.5 PO (10:56)
[2016-11-19] MEDS ORDERED: TOPAMAX50 MG PO (10:57)
[2016-12-07] MEDS ORDERED: NEXIUM40 PO (15:15)
[2016-12-07] MEDS ORDERED: BREO ELLIPTA 21 EACH INH (15:15)
[2016-12-07] MEDS ORDERED: COREG3 PO (15:16)
[2016-12-07] MEDS ORDERED: AT25 PO ×2 (15:16→15:17)
[2016-12-07] MEDS ORDERED: ZOCOR20 PO (15:16)
[2016-12-07] MEDS ORDERED: IMITREX50 PO (15:17)
[2016-12-07] MEDS ORDERED: MARI2.5 PO (15:18)
[2016-12-07] MEDS ORDERED: ZOFRAN8 PO (15:18)
[2016-12-07] MEDS ORDERED: PCET PO (15:19)
[2016-12-07] MEDS ORDERED: BUM2 PO (15:19)
[2016-12-07] MEDS ORDERED: LOVENOX60 SC (15:19)
[2016-12-07] MEDS ORDERED: TOPAMAX50 MG PO (15:19)
[2016-12-07] MEDS ORDERED: SACU1TAB PO (15:20)
[2016-12-07] MEDS ORDERED: CATPATCH1 TOP (15:20)
[2016-12-07] MEDS ORDERED: CYPROHEPTAD4 MG PO (15:20)
[2016-12-07] MEDS ORDERED: NEUR800 PO (15:21)
[2016-12-07] MEDS ORDERED: CORTEF5 PO ×3 (15:22)
[2016-12-07] MEDS ORDERED: REG PO (15:23)
[2016-12-07] MEDS ORDERED: TRANSSCOP TOP (15:24)
[2016-12-07] MEDS ORDERED: SUCR PO (15:25)
[2016-12-07] MEDS ORDERED: EFFEXXR75 PO ×2 (15:26)
[2016-12-07] MEDS ORDERED: COMP10B PO (15:27)
[2016-12-07] MEDS ORDERED: PR25 PO (15:28)
[2016-12-07] MEDS ORDERED: PROMETHAZINE DM SYRP PO (15:30)
[2016-12-07] MEDS ORDERED: V5 PO (15:31)
[2016-12-07] MEDS ORDERED: MOBIC7.5 PO (15:32)
[2016-12-07] MEDS ORDERED: ISOPTIN SR180 MG PO (15:35)
[2016-12-07] MEDS ORDERED: ASABAYER PO (15:36)
[2016-12-07] MEDS ORDERED: VITD PO (15:37)
[2016-12-07] MEDS ORDERED: EPIPEN0.3 IM (15:37)
[2016-12-07] MEDS ORDERED: B121000P SC (15:37)
[2016-12-12] MEDS ORDERED: FLORINEF0.1 MG PO (11:28)
[2016-12-12] MEDS ORDERED: KLOR-CON M2020 MEQ PO (11:37)
[2016-12-12] MEDS ORDERED: CORTEF20 MG PO (11:38)
[2016-12-12] MEDS ORDERED: PR12.5 PO (11:39)
[2016-12-12] MEDS ORDERED: CORTEF5 PO (11:39)
[2016-12-12] MEDS ORDERED: ZOFRAN8 PO (11:39)
[2016-12-17] MEDS ORDERED: XIFAXAN550 MG PO (18:26)
[2016-12-22] MEDS ORDERED: BUM5 PO (10:40)
[2016-12-22] MEDS ORDERED: KLOR-CON 1010 MEQ PO (10:54)
== END 2016-06-02 19:34 | disposition home or self-care (01) ==
LOC: ER 14:31
PROVIDERS: Emergency Medicine
DX: Z76.5 Malingerer [conscious simulation] (principal); R11.2 Nausea with vomiting, unspecified; E87.6 Hypokalemia; J45.909 Unspecified asthma, uncomplicated; I50.9 Heart failure, unspecified; F32.9 Major depressive disorder, single episode, unspecified; F41.9 Anxiety disorder, unspecified; M32.9 Systemic lupus erythematosus, unspecified; K31.84 Gastroparesis; Z93.2 Ileostomy status; Z95.810 Presence of automatic (implantable) cardiac defibrillator; Z90.710 Acquired absence of both cervix and uterus; Z88.0 Allergy status to penicillin; Z88.5 Allergy status to narcotic agent; Z88.1 Allergy status to other antibiotic agents; Z88.8 Allergy status to other drugs, medicaments and biological substances; Z91.040 Latex allergy status; Z91.018 Allergy to other foods; Z91.013 Allergy to seafood
CPT/HCPCS: 74249; 80053; 83690; 85025; 96374; 96375; 99284; A9270-GY; J1885; J2405; J2550

== ENCOUNTER 2016-06-19 12:37 | Emergency (ER) | payer BC ==
[2016-06-19 12:55] LABS: BASOPHILS 0.1 %; BASOPHILS ABSOLUTE 0.01 10/3/uL (0.0-0.16); EOSINOPHILS 3.6 %; IMMATURE GRANULOCYTES 0.1 %; IMMATURE GRANULOCYTES ABSOLUTE 0.01 10/3/uL (0.0-0.11); LYMPHOCYTES 34.6 %; MEAN CORPUSCULAR HEMOGLOB 29.7 pg (26.0-34.0); MEAN PLATELET VOLUME 10.1 fL (9.2-13.0); MONOCYTES 6.1 %; MONOCYTES ABSOLUTE 0.51 10/3/uL (0.21-1.20); NEUTROPHILS 55.5 %; NEUTROPHILS ABSOLUTE 4.65 10/3/uL (2.02-8.40); RBC DISTRIBUTION WIDTH 15.4 % (12.0-16.0); RED CELL COUNT 3.97 10/6/uL (4.0-5.6); WHITE BLOOD CELLS 8.4 10/3/uL (4.5-10.5)
[2016-06-19 12:58] LABS: HEMATOCRIT 36.5 % (36.0-48.0); HEMOGLOBIN 11.8 g/dL (12.0-16.0); MANUAL DIFF NO %; MEAN CORPUS HGB CONC 32.3 g/dL (32.0-36.0); MEAN CORPUSCULAR VOLUME 91.9 fL (80-100); PLATELET COUNT 239 10/3/uL (150-400)
[2016-06-19 13:10] LABS: A/G RATIO 0.9 (0.7-1.9); ALBUMIN 3.7 G/DL (3.5-5.0); CALCIUM, SERUM 8.7 MG/DL (8.5-10.4); CREATININE 0.93 MG/DL (0.55-1.02); GFR AFRICAN AMERICAN 91 ML/MIN (>=60); GFR NON AFRICAN AMERICAN 79 ML/MIN (>=60); SGOT(AST) 21 U/L (5-40); SGPT(ALT) 24 U/L (5-65); SODIUM, SERUM 141 MMOL/L (135-148); TOTAL BILIRUBIN 0.9 MG/DL (0-1.2); TOTAL PROTEIN 7.7 G/DL (6.0-8.5)
[2016-06-19 13:11] LABS: ALKALINE PHOSPHATASE 115 U/L (45-117); BUN (BLOOD UREA NITROGEN) 5 MG/DL (6-23); CHLORIDE, SERUM 106 MMOL/L (96-112); CO2 (CARBON DIOXIDE) 23 MMOL/L (24-34); GLUCOSE, SERUM 76 MG/DL (60-99)
[2016-06-19 18:05] LABS: ASCORBIC ACID (UR NOT ORDER) NEG (NEG); BILIRUBIN, URINE NEGATIVE (NEG); ER URINALYSIS TAT 0 Hrs 21 Mins; KETONE, URINE NEGATIVE (NEG); LEUKOCYTE ESTERASE(NOT OR NEG (NEG); NITRITE (URINE) NEG (NEG); WBC (NOT ORDERED) (RFLEX) 13 (0-5)
[2016-10-15] MEDS ORDERED: LOVENOX60 SC (16:20)
[2016-10-15] MEDS ORDERED: TOPAMAX25 PO (16:21)
[2016-10-15] MEDS ORDERED: TRANSSCOP TOP (16:21)
[2016-10-15] MEDS ORDERED: BUM2 PO (16:21)
[2016-10-15] MEDS ORDERED: REG5 PO (16:21)
[2016-10-15] MEDS ORDERED: ZOCOR20 PO (16:22)
[2016-10-15] MEDS ORDERED: SACU1TAB PO (16:22)
[2016-10-15] MEDS ORDERED: CATPATCH1 TOP (16:22)
[2016-10-15] MEDS ORDERED: BREO ELLIPTA 21 EACH INH (16:23)
[2016-10-15] MEDS ORDERED: ISOPTIN SR180 MG PO (16:23)
[2016-10-15] MEDS ORDERED: NEUR800 PO (16:24)
[2016-10-15] MEDS ORDERED: CORTEF5 PO ×2 (16:24→16:25)
[2016-10-15] MEDS ORDERED: COREG3 PO (16:24)
[2016-10-15] MEDS ORDERED: DHE1 PO (16:25)
[2016-10-15] MEDS ORDERED: AT25 PO ×2 (16:25→16:30)
[2016-10-15] MEDS ORDERED: CYPROHEPTAD4 MG PO (16:26)
[2016-10-15] MEDS ORDERED: SUCR PO (16:26)
[2016-10-15] MEDS ORDERED: EFFEXXR75 PO (16:26)
[2016-10-15] MEDS ORDERED: KLOR-CON M2020 MEQ PO (16:27)
[2016-10-15] MEDS ORDERED: VITAMIN B-2100 MG PO (16:28)
[2016-10-15] MEDS ORDERED: NUCALA SQ (16:29)
[2016-10-15] MEDS ORDERED: PR25 PO (16:30)
[2016-10-15] MEDS ORDERED: MARI2.5 PO (16:30)
[2016-10-15] MEDS ORDERED: COMP10B PO (16:31)
[2016-10-15] MEDS ORDERED: MOBIC7.5 PO (16:31)
[2016-10-15] MEDS ORDERED: PCET PO (16:32)
[2016-10-15] MEDS ORDERED: IMITREX25 PO (16:36)
[2016-10-15] MEDS ORDERED: MCZ25 PO (16:38)
[2016-10-15] MEDS ORDERED: PROAIRRESP INH (16:38)
[2016-10-15] MEDS ORDERED: SYSTANE OPH (16:39)
[2016-10-15] MEDS ORDERED: ANASPAZ0.125 MG PO (16:39)
[2016-10-15] MEDS ORDERED: BEN25 PO (16:39)
[2016-10-15] MEDS ORDERED: V5 PO (16:40)
[2016-11-12] MEDS ORDERED: PR12.5 PO (14:18)
[2016-11-12] MEDS ORDERED: EFFEXOR XR150 MG PO (14:21)
[2016-11-12] MEDS ORDERED: PAPAYA ENZY1 PO (14:26)
[2016-11-12] MEDS ORDERED: NEXIUM40 PO (14:27)
[2016-11-19] MEDS ORDERED: ZOFRANODT8 PO (10:55)
[2016-11-19] MEDS ORDERED: MARI2.5 PO (10:56)
[2016-11-19] MEDS ORDERED: PCET PO (10:56)
[2016-11-19] MEDS ORDERED: TOPAMAX50 MG PO (10:57)
[2016-12-07] MEDS ORDERED: BREO ELLIPTA 21 EACH INH (15:15)
[2016-12-07] MEDS ORDERED: NEXIUM40 PO (15:15)
[2016-12-07] MEDS ORDERED: AT25 PO ×2 (15:16→15:17)
[2016-12-07] MEDS ORDERED: ZOCOR20 PO (15:16)
[2016-12-07] MEDS ORDERED: COREG3 PO (15:16)
[2016-12-07] MEDS ORDERED: IMITREX50 PO (15:17)
[2016-12-07] MEDS ORDERED: ZOFRAN8 PO (15:18)
[2016-12-07] MEDS ORDERED: MARI2.5 PO (15:18)
[2016-12-07] MEDS ORDERED: PCET PO (15:19)
[2016-12-07] MEDS ORDERED: TOPAMAX50 MG PO (15:19)
[2016-12-07] MEDS ORDERED: LOVENOX60 SC (15:19)
[2016-12-07] MEDS ORDERED: BUM2 PO (15:19)
[2016-12-07] MEDS ORDERED: SACU1TAB PO (15:20)
[2016-12-07] MEDS ORDERED: CATPATCH1 TOP (15:20)
[2016-12-07] MEDS ORDERED: CYPROHEPTAD4 MG PO (15:20)
[2016-12-07] MEDS ORDERED: NEUR800 PO (15:21)
[2016-12-07] MEDS ORDERED: CORTEF5 PO ×3 (15:22)
[2016-12-07] MEDS ORDERED: REG PO (15:23)
[2016-12-07] MEDS ORDERED: TRANSSCOP TOP (15:24)
[2016-12-07] MEDS ORDERED: SUCR PO (15:25)
[2016-12-07] MEDS ORDERED: EFFEXXR75 PO ×2 (15:26)
[2016-12-07] MEDS ORDERED: COMP10B PO (15:27)
[2016-12-07] MEDS ORDERED: PR25 PO (15:28)
[2016-12-07] MEDS ORDERED: PROMETHAZINE DM SYRP PO (15:30)
[2016-12-07] MEDS ORDERED: V5 PO (15:31)
[2016-12-07] MEDS ORDERED: MOBIC7.5 PO (15:32)
[2016-12-07] MEDS ORDERED: ISOPTIN SR180 MG PO (15:35)
[2016-12-07] MEDS ORDERED: ASABAYER PO (15:36)
[2016-12-07] MEDS ORDERED: EPIPEN0.3 IM (15:37)
[2016-12-07] MEDS ORDERED: VITD PO (15:37)
[2016-12-07] MEDS ORDERED: B121000P SC (15:37)
[2016-12-12] MEDS ORDERED: FLORINEF0.1 MG PO (11:28)
[2016-12-12] MEDS ORDERED: KLOR-CON M2020 MEQ PO (11:37)
[2016-12-12] MEDS ORDERED: CORTEF20 MG PO (11:38)
[2016-12-12] MEDS ORDERED: CORTEF5 PO (11:39)
[2016-12-12] MEDS ORDERED: ZOFRAN8 PO (11:39)
[2016-12-12] MEDS ORDERED: PR12.5 PO (11:39)
[2016-12-17] MEDS ORDERED: XIFAXAN550 MG PO (18:26)
[2016-12-22] MEDS ORDERED: BUM5 PO (10:40)
[2016-12-22] MEDS ORDERED: KLOR-CON 1010 MEQ PO (10:54)
== END 2016-06-19 18:36 | disposition home or self-care (01) ==
LOC: ER 12:37
PROVIDERS: Emergency Medicine
DX: R11.2 Nausea with vomiting, unspecified (principal); G89.29 Other chronic pain; R10.9 Unspecified abdominal pain; I50.9 Heart failure, unspecified; F32.9 Major depressive disorder, single episode, unspecified; F41.9 Anxiety disorder, unspecified; Z95.0 Presence of cardiac pacemaker; Z88.0 Allergy status to penicillin; Z88.5 Allergy status to narcotic agent; Z88.1 Allergy status to other antibiotic agents; Z88.8 Allergy status to other drugs, medicaments and biological substances; Z91.018 Allergy to other foods; Z91.013 Allergy to seafood; Z91.09 Other allergy status, other than to drugs and biological substances; Z79.82 Long term (current) use of aspirin; Z79.899 Other long term (current) drug therapy
CPT/HCPCS: 80053; 81001; 83690; 84703; 85025; 93005; 96374; 96375; 99284; A9270-GY; J1885; J2765